=== PATIENT | male | born 2000 | race Two or more races ===

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

== ENCOUNTER 2024-11-02 17:58 | Emergency (ER) | payer OTHER ==
[2024-11-02] MEDS: Acetaminophen 500 MG Tab PO ONE (18:40)
[2024-11-02] MEDS: Ibuprofen 800 MG Tab PO ONE (18:40)
== END 2024-11-02 18:50 | disposition home or self-care (01) ==
LOC: FB.ED 17:58
DX: T15.02XA Foreign body in cornea, left eye, initial encounter (principal); T15.01XA Foreign body in cornea, right eye, initial encounter; W44.8XXA Other foreign body entering into or through a natural orifice, initial encounter; Y93.89 Activity, other specified
CPT/HCPCS: 99283; A9270-GY